=== PATIENT | male | born 1975 | race Caucasian/White ===

== ENCOUNTER 2018-01-26 16:28 | Emergency (ER) | payer OTHER ==
[2018-01-26] MEDS ORDERED: Lidocaine 1% w/Epinephrine 1:100K 20 ML VIAL ONE (17:12)
--- NOTE | 2018-01-26 17:21 | RAD ---
RIGHT HAND INDEX FINGER THREE VIEWS: History: Injury, pain. FINDINGS: There is comminution of the tuft of the index finger of the right hand. IMPRESSION: Comminuted tuft fracture of the index finger of the right hand. POS: D[facility]ION[facility]
[2018-01-26] MEDS ORDERED: Adacel (T-DAP) 0.5 ML VIAL ONE (17:25)
[2018-01-26] MEDS ORDERED: CEFAZOLIN 1 GM VIAL ONE (17:29)
[2018-01-26] MEDS ORDERED: Triple Antibiotic Oint 1 GM Packet ONE (18:22)
== END 2018-01-26 18:31 | disposition home or self-care (01) ==
LOC: ERS 16:28
DX: S62.630B Displaced fracture of distal phalanx of right index finger, initial encounter for open fracture (principal); F17.210 Nicotine dependence, cigarettes, uncomplicated; W31.82XA Contact with other commercial machinery, initial encounter; Y92.65 Oil rig as the place of occurrence of the external cause
CPT/HCPCS: 12001; 90471; 90715; 96372; J0690; J2001